=== PATIENT | male | born 1950 | race Caucasian/White ===

== ENCOUNTER 2017-05-20 06:20 | Day surgery (SDC) | payer OTHER ==
[~2017-05-20] VITALS: Ht 177.8 cm; Wt 79.4 kg
[~2017-05-20 06:20] MED LIST: ASCORBIC ACID500 M3 PO; ASPIR 8181 M1 PO; CALCIUM 600 +1 EAC1 PO; COD LIVER OIL1 EACH PO; DAILY VITAMIN1 EAC8 PO; FISH OIL CONC1 EACH PO; GLUCOSAMINE &1 EAC1 PO; LISINOPRIL20 MG PO; NEXIUM40 MG PO; NIACOR500 MG PO; PRILOSEC20 MG PO; TAMSULOSIN HCL0.4 MG PO; TUMERIC PO; VISION FORMULA1 EAC1 PO
[2017-05-20 06:57] VITALS: BP 123/79
[2017-05-20 10:25] VITALS: BP 136/81
== END 2017-05-20 10:55 | disposition home or self-care (01) ==
LOC: SDC 06:20
DX: E11.311 Type 2 diabetes mellitus with unspecified diabetic retinopathy with macular edema (principal); I10 Essential (primary) hypertension; E03.9 Hypothyroidism, unspecified; K21.9 Gastro-esophageal reflux disease without esophagitis; G47.30 Sleep apnea, unspecified; Z79.82 Long term (current) use of aspirin; Z87.891 Personal history of nicotine dependence
CPT/HCPCS: J0690; J0713; J2250; J3300; J3301